=== PATIENT | female | born 1980 ===

== ENCOUNTER 2017-03-17 10:42 | Emergency (ER) | payer OTHER ==
[2017-03-17 10:47] VITALS: BMI 24.4
[2017-03-17 10:49] VITALS: BP 118/78; PULSE 73; RESP 16; TEMP 97.6; O2SAT 100
--- NOTE | 2017-03-17 11:35 | ED PDOC ---
HPI: CCC, URI, Sore Throat Time Seen by Provider: 03/17/17 10:57 Chief Complaint (Nursing): ENT Problem Chief Complaint (Provider): Let nasal congestion, intermittent x 3 years History Per: Patient History/Exam Limitations: no limitations Have you had recent travel within the past 21 days to any of the following countries: [place], [place], [place] or [place]?: No Onset/Duration Of Symptoms: Days Current Symptoms Are (Timing): Still Present Additional Complaint(s): Pt states she fell and injured nose 3 years ago. Pt states since than she has been having intermittent left sided nasal congestion. Pt states she has not been seen for it yet and there is no specific reason why she came today. Past Medical History Reviewed: Historical Data, Nursing Documentation, Vital Signs Vital Signs: Last Vital Signs Temp 97.6 F 03/17/17 10:48 Pulse 73 03/17/17 10:48 Resp 16 03/17/17 10:48 BP 118/78 03/17/17 10:48 Pulse Ox 100 03/17/17 11:36 - Medical History PMH: No Chronic Diseases - Surgical History Surgical History: No Surg Hx - Family History Family History: States: No Known Family Hx - Home Medications Home Medications: Ambulatory Orders Medication Instructions Recorded Fexofenadine/Pseudoephedrine 1 each PO BID PRN #12 tab.er.12h 03/17/17 [Ana-D 12 Hour Tablet] - Allergies Allergies/Adverse Reactions: Allergies Allergy/AdvReac Type Severity Reaction Status Date / Time No Known Allergies Allergy Verified 03/17/17 10:49 Physical Exam - Reviewed Nursing Documentation Reviewed: Yes Vital Signs Reviewed: Yes - Physical Exam Appears: Positive for: Well, Non-toxic, No Acute Distress Head Exam: Positive for: ATRAUMATIC, NORMAL INSPECTION, NORMOCEPHALIC Skin: Positive for: Normal Color, Warm, DRY Eye Exam: Positive for: Normal appearance ENT: Positive for: Normal ENT Inspection, Other (No septal hematoma ) Neck: Positive for: Normal, Painless ROM Respiratory: Negative for: Accessory Muscle Use, Respiratory Distress Back: Positive for: Normal Inspection Extremity: Positive for: Normal ROM Neurologic/Psych: Positive for: Alert, Oriented - ECG O2 Sat by Pulse Oximetry: 100 Disposition - Clinical Impression Clinical Impression: Nasal congestion - Patient ED Disposition Is Patient to be Admitted: No Counseled Patient/Family Regarding: Diagnosis, Need For Followup, Rx Given - Disposition Referrals: [facility] [Outside] Donis Ortiz MD [Staff Provider] - Disposition: Routine/Home Disposition Time: 11:36 Condition: GOOD Prescriptions: Fexofenadine/Pseudoephedrine [Ana-D 12 Hour Tablet] 1 each PO BID PRN #12 tab.er.12h PRN Reason: Cough And Congestion Instructions: Allergic Rhinitis (ED) Forms: [employer] (Thai) Print Language: FILIPINO
== END 2017-03-17 11:55 | disposition home or self-care (01) ==
LOC: H.ER 10:42
DX: R09.81 Nasal congestion (principal)

== ENCOUNTER 2017-05-06 12:43 | Emergency (ER) | payer SELFPAY ==
[2017-05-06 13:01] VITALS: BP 119/69; PULSE 76; RESP 16; TEMP 98; O2SAT 100
--- NOTE | 2017-05-06 13:43 | ED PDOC ---
Upper Extremity Pain/Injury Time Seen by Provider: 05/06/17 13:04 Chief Complaint (Nursing): Finger,Hand,&Wrist Chief Complaint (Provider): Right hand History Per: Patient History/Exam Limitations: no limitations Onset/Duration Of Symptoms: Days (x 1 week) Current Symptoms Are (Timing): Still Present Additional Complaint(s): 36 year old female presents to the ED complaining of right hand pain, onset 1 week ago. Patient states that 1 week ago a folding machine fell on her right hand. At the time she did not seek medical attention, but continue to have pain , swelling and bruising. Otherwise: (-) numbness, (-) decreased ROM, (-) other injury. PMD: Peter Ryan Past Medical History Reviewed: Historical Data, Nursing Documentation, Vital Signs Vital Signs: Last Vital Signs Temp 98 F 05/06/17 12:58 Pulse 76 05/06/17 12:58 Resp 16 05/06/17 12:58 BP 119/69 05/06/17 12:58 Pulse Ox 100 05/06/17 12:58 - Medical History PMH: No Chronic Diseases - Surgical History Surgical History: No Surg Hx - Family History Family History: States: Unknown Family Hx - Social History Current smoker - smoking cessation education provided: No Alcohol: None Drugs: Denies - Home Medications Home Medications: Ambulatory Orders Medication Instructions Recorded Naproxen 500 mg PO BID PRN #20 tablet 05/06/17 - Allergies Allergies/Adverse Reactions: Allergies Allergy/AdvReac Type Severity Reaction Status Date / Time No Known Allergies Allergy Verified 05/06/17 12:57 Review of Systems ROS Statement: Except As Marked, All Systems Reviewed And Found Negative Musculoskeletal: Positive for: Hand Pain (right) Neurological: Negative for: Numbness Physical Exam - Reviewed Nursing Documentation Reviewed: Yes Vital Signs Reviewed: Yes - Physical Exam Comments: GENERAL APPEARANCE: Patient is awake, alert, oriented x 3, in no acute distress. SKIN: Warm, dry; (-) cyanosis. HAND: (+) Tenderness, (+) mild swelling, (+) ecchymosis of dorsal aspect of 3rd and 4th MCPs (-) deformity. (-) snuff-box tenderness. (-) distal neurovascular deficit, Elbow, wrist and digits: (-) decreased ROM, (-) tenderness. - ECG O2 Sat by Pulse Oximetry: 100 (RA) Pulse Ox Interpretation: Normal Medical Decision Making Medical Decision Making: Impression : hand contusion, r/o fracture Time: 13:12 --Right hand x-ray XR R hand: no fracture, no dislocation, as read by RAINA Patient advised that official radiology read of XR is still pending and will call the patient if there is any discrepancy within 24 hours. XR results d/w the patient, dx of contusion d/w the patient. Advised to ice and elevate her hand. Tho wrap applied by RAINA to the R hand. Advised to follow up with the pmd or workman's comp in 1-2 days without fail. Advised to take medication as prescribed. Return to the emergency room at any time for any new or worsening symptoms. Patient states she fully agrees with and understands discharge instructions. States that she agrees with the plan and disposition. Verbalized and repeated discharge instructions and plan. I have given the patient opportunity to ask any additional questions. ---- Scribe Attestation: Documented by Carol Doll, acting as a scribe for Lacey Potter PA-C Provider Scribe Attestation: All medical record entries made by the Scribe were at my direction and personally dictated by me. I have reviewed the chart and agree that the record accurately reflects my personal performance of the history, physical exam, medical decision making, and the department course for this patient. I have also personally directed, reviewed, and agree with the discharge instructions and disposition. Disposition - Clinical Impression Clinical Impression: Contusion of right hand - Patient ED Disposition Is Patient to be Admitted: No Counseled Patient/Family Regarding: Studies Performed, Diagnosis, Need For Followup, Rx Given - Disposition Referrals: [facility] [Outside] Disposition: Routine/Home Disposition Time: 13:30 Condition: STABLE Additional Instructions: Thank you for letting us take care of you today. You were treated for right hand contusion. The emergency medical care you received today was directed at your acute symptoms. If you were prescribed any medication, please fill it and take as directed. It may take several days for your symptoms to resolve. Return to the Emergency Department if your symptoms worsen, do not improve, or if you have any other problems. Please contact your doctor in 2 days for re-evaluation and follow up / or call one of the physicians/clinics you have been referred to that are listed on the Patient Visit Information form that is included in your discharge packet. Bring any paperwork you were given at discharge with you along with any medications you are taking to your follow up visit. Our treatment cannot replace ongoing medical care by a primary care provider (PCP) outside of the emergency department. Thank you for allowing the [facility] team to be part of your care today. If you had an X-Ray : A Radiologist will review the ED reading if any change in treatment is needed we will contact you. Prescriptions: Naproxen 500 mg PO BID PRN #20 tablet PRN Reason: Pain, Moderate (4-7) Instructions: Contusion (DC) Forms: [employer] (Hebrew), [facility] ED School/Work Excuse Print Language: PASHTO - PA / PRINCIPAL STRATEGIST / Resident Statement MD/DO has reviewed & agrees with the documentation as recorded.
--- NOTE | 2017-05-06 14:16 | RAD ---
PROCEDURE: Right Hand Radiographs. HISTORY: pain COMPARISON: None. FINDINGS: BONES: No acute fracture or destructive bony lesion identified. JOINTS: Normal. No osteoarthritic changes. SOFT TISSUES: Normal. OTHER FINDINGS: None. IMPRESSION: Unremarkable right hand radiographs.
== END 2017-05-06 14:09 | disposition home or self-care (01) ==
LOC: H.ER 12:43 → MERGE 12:43 → H.ER 14:09
DX: S60.221A Contusion of right hand, initial encounter (principal); W22.8XXA Striking against or struck by other objects, initial encounter; Y92.89 Other specified places as the place of occurrence of the external cause